=== PATIENT | male | born 1935 | race Caucasian/White ===

== ENCOUNTER 2023-05-30 20:50 | Inpatient (IN) | payer MEDICARE ==
[~2023-05-30] VITALS: Ht 167.6 cm; Wt 79.4 kg
[2023-05-30 23:12] LABS: CALCIUM, SERUM 9.2 mg/dL (8.5-10.1); CARBON DIOXIDE 30 mmol/L (21-32); CHLORIDE 103 mmol/L (98-107); CREATININE 1.5 mg/dL (0.6-1.3); GLUCOSE 92 mg/dL (74-106); POTASSIUM 4.3 mmol/L (3.5-5.1); SODIUM SERUM 141 mmol/L (136-145); UREA NITROGEN, BLOOD 33 mg/dL (7-18)
[2023-05-30 23:25] LABS: NT-PRO BNP 5946 pg/mL (0-125)
[2023-05-31] MEDS ORDERED: BUMETANIDE INJ 0.25 MG/ML VIAL ONE (01:14)
[2023-05-31 01:18] LABS: BASOPHILS % (AUTO) 1.1 % (0.0-2.0); EOSINOPHILS % (AUTO) 1.6 % (0.0-6.0); HEMATOCRIT 33 % (39-51); HEMOGLOBIN 10.9 g/dL (13.5-17.5); LYMPHOCYTES # (AUTO) 0.6 K/uL (0.8-4.8); LYMPHOCYTES % (AUTO) 20.9 % (20.0-44.0); MEAN CORPUSCULAR HEMOGLOBIN 34 PG (26.0-33.0); MEAN CORPUSCULAR HGB CONC 33 g/dl (31.0-36.0); MEAN CORPUSCULAR VOLUME 101 fL (80-96); MONOCYTES # (AUTO) 0.3 K/uL (0.1-1.30); MONOCYTES % (AUTO) 11.9 % (2.0-12.0); NEUTROPHILS # (AUTO) 1.9 K/uL (1.8-8.9); NEUTROPHILS % (AUTO) 64.5 % (43.0-81.0); PLATELET COUNT (AUTO) 56 K/uL (150-450); RED BLOOD CELL COUNT(AUTO) 3.22 MIL/uL (4.5-6.0); RED CELL DISTRIBUTION WIDTH 15.6 % (11.5-15.0); WHITE BLOOD COUNT (AUTO) 2.9 K/uL (4.3-11.0)
[2023-05-31] MEDS: BUMETANIDE INJ 0.25 MG/ML VIAL IV ONE (01:20)
[2023-05-31 01:38] VITALS: O2SAT 100
[2023-05-31] MEDS ORDERED: ASPIRIN 81 MG TAB.CHEW ONE (01:42)
[2023-05-31] MEDS: ASPIRIN 81 MG TAB.CHEW PO ONE (01:44)
[2023-05-31] MEDS ORDERED: MORPHINE SULFATE INJ 2 MG/ML DISP.SYRIN IV PRN (02:00)
[2023-05-31] MEDS ORDERED: DEXTROSE 50%-WATER 50 ML DISP.SYRIN IV PRN (02:00)
[2023-05-31] MEDS ORDERED: hydrALAZINE HCL IV 20 MG VIAL IV PRN (02:00)
[2023-05-31] MEDS ORDERED: ONDANSETRON HCL/PF 4 MG/2 ML VIAL IVP PRN (02:00)
[2023-05-31 02:50] VITALS: BP 158/55; TEMP 97.5; O2SAT 97
[2023-05-31 03:01] LABS: EOSINOPHILS % (MANUAL) 5 % (0-4); LYMPHOCYTES % (MANUAL) 20 % (16-48); MONOCYTES % (MANUAL) 12 % (0-11.0); NEUTROPHILS % (MANUAL) 63 (42-76); PLATELET ESTIMATE DECREASED
[2023-05-31 03:02] LABS: ANISOCYTOSIS 2+
[2023-05-31 04:00] VITALS: BP 131/53; TEMP 97.7; O2SAT 97
[2023-05-31] MEDS: BLOOD SUGAR DIAGNOSTIC 1 EACH STRIP VI SCH (06:36)
[2023-05-31] MEDS: BUMETANIDE INJ 0.25 MG/ML VIAL IV SCH (08:51)
[2023-05-31] MEDS: APIXABAN 2.5 MG TABLET PO SCH (08:52)
[2023-05-31] MEDS ORDERED: CHOL500052 PO (09:02)
[2023-05-31] MEDS ORDERED: PANT40TA2 PO (09:02)
[2023-05-31] MEDS ORDERED: TAMS-12 PO (09:02)
[2023-05-31] MEDS ORDERED: NAPR-1009 PO (09:02)
[2023-05-31] MEDS ORDERED: FURO-144 PO (09:02)
[2023-05-31] MEDS ORDERED: DOCU250C14 PO (09:02)
[2023-05-31] MEDS ORDERED: BUME2TAB7 PO (09:02)
[2023-05-31] MEDS ORDERED: PANT40TA49 PO (09:03)
[2023-05-31] MEDS ORDERED: DOCUSATE SODIUM 250 MG CAPSULE PO PRN (10:30)
[2023-05-31 12:10] LABS: BASOPHILS % (AUTO) 1.1 % (0.0-2.0); EOSINOPHILS # (AUTO) 0.1 K/uL (0.0-0.7); EOSINOPHILS % (AUTO) 2.1 % (0.0-6.0); HEMATOCRIT 31 % (39-51); HEMOGLOBIN 10.6 g/dL (13.5-17.5); LYMPHOCYTES # (AUTO) 0.5 K/uL (0.8-4.8); LYMPHOCYTES % (AUTO) 19.6 % (20.0-44.0); MEAN CORPUSCULAR HEMOGLOBIN 34 PG (26.0-33.0); MEAN CORPUSCULAR HGB CONC 34 g/dl (31.0-36.0); MEAN CORPUSCULAR VOLUME 101 fL (80-96); MONOCYTES # (AUTO) 0.3 K/uL (0.1-1.30); MONOCYTES % (AUTO) 12.5 % (2.0-12.0); NEUTROPHILS # (AUTO) 1.8 K/uL (1.8-8.9); NEUTROPHILS % (AUTO) 64.7 % (43.0-81.0); PLATELET COUNT (AUTO) 55 K/uL (150-450); RED CELL DISTRIBUTION WIDTH 15.7 % (11.5-15.0); WHITE BLOOD COUNT (AUTO) 2.7 K/uL (4.3-11.0)
[2023-05-31 12:13] LABS: APPEARANCE,URINE CLEAR (CLEAR); BILIRUBIN,URINE NEGATIVE (NEGATIVE); BLOOD, URINE TRACE-INTA Ery/uL (NEGATIVE); COLOR,URINE YELLOW (YELLOW); KETONES,URINE NEGATIVE (NEGATIVE); LEUKOCYTE ESTERASE ,URINE NEGATIVE (NEGATIVE); NITRITE, URINE NEGATIVE (NEGATIVE); PH,URINE 6.5 (5.0-8.0); PROTEIN,URINE NEGATIVE (NEGATIVE); UGLUCOSE NEGATIVE (NEGATIVE); UROBILINOGEN,URINE 0.2 EU/dL (0.2)
[2023-05-31 12:17] LABS: CREATININE, URINE 29.2 MG/DL (30.0-125.0); URINE TOTAL PROTEIN 9.2 mg/dL (0-11.9)
[2023-05-31 12:23] LABS: ALANINE AMINOTRANSFERASE 23 U/L (12-78); ALBUMIN 3.7 g/dL (3.4-5.0); ALKALINE PHOSPHATASE 53 U/L (46-116); ASPARTATE AMINOTRANSFERASE 24 U/L (15-37); BILIRUBIN,TOTAL 0.8 mg/dL (0.2-1.0); CALCIUM, SERUM 9.1 mg/dL (8.5-10.1); CARBON DIOXIDE 33 mmol/L (21-32); CHLORIDE 103 mmol/L (98-107); CREATININE 1.5 mg/dL (0.6-1.3); GLUCOSE 94 mg/dL (74-106); MAGNESIUM 2.4 mg/dL (1.8-2.4); PHOSPHORUS 3.9 mg/dL (2.5-4.9); POTASSIUM 4.2 mmol/L (3.5-5.1); SODIUM SERUM 142 mmol/L (136-145); UREA NITROGEN, BLOOD 33 mg/dL (7-18)
[2023-05-31 12:25] LABS: ADD URINE CULTURE NO; BACTERIA,URINE None seen /HPF (None Seen); RBC,URINE 0-2 /HPF (0-2); SQUAMOUS EPITHELIAL CELL,UR None Seen /HPF (None Seen); WBC,URINE NONE SEEN /HPF (0-3)
[2023-05-31 12:38] LABS: EOSINOPHIL,URINE None Seen
[2023-05-31 16:00] VITALS: BP 123/58; TEMP 98.2; O2SAT 93
[2023-05-31 20:00] VITALS: BP 111/51; TEMP 99.3; O2SAT 96
[2023-05-31] MEDS: *INSULIN REGULAR(HUMULIN R)HUM 100 UNIT/ML VIAL SQ PRN (21:17)
[2023-06-01] VITALS: BP 119/52; TEMP 98.1; O2SAT 97
[2023-06-01 05:00] VITALS: BP 111/68; TEMP 97.9; O2SAT 95
[2023-06-01] MEDS: INSULIN REGULAR, HUMAN 100 UNIT/ML 3 ML VIAL SQ PRN (06:30)
[2023-06-01 06:48] LABS: BASOPHILS % (AUTO) 0.6 % (0.0-2.0); EOSINOPHILS # (AUTO) 0.1 K/uL (0.0-0.7); EOSINOPHILS % (AUTO) 4.1 % (0.0-6.0); HEMATOCRIT 29 % (39-51); LYMPHOCYTES # (AUTO) 0.5 K/uL (0.8-4.8); LYMPHOCYTES % (AUTO) 19.6 % (20.0-44.0); MEAN CORPUSCULAR HEMOGLOBIN 34 PG (26.0-33.0); MEAN CORPUSCULAR HGB CONC 34 g/dl (31.0-36.0); MEAN CORPUSCULAR VOLUME 100 fL (80-96); MONOCYTES # (AUTO) 0.4 K/uL (0.1-1.30); MONOCYTES % (AUTO) 15.4 % (2.0-12.0); NEUTROPHILS # (AUTO) 1.6 K/uL (1.8-8.9); NEUTROPHILS % (AUTO) 60.3 % (43.0-81.0); PLATELET COUNT (AUTO) 57 K/uL (150-450); RED BLOOD CELL COUNT(AUTO) 2.92 MIL/uL (4.5-6.0); RED CELL DISTRIBUTION WIDTH 15.2 % (11.5-15.0); WHITE BLOOD COUNT (AUTO) 2.7 K/uL (4.3-11.0)
[2023-06-01 06:49] LABS: IRON, SERUM 72 ug/dl (50-175); TOTAL IRON BINDING CAPACITY 238 ug/dl (250-450)
[2023-06-01 07:00] VITALS: BP 114/53; TEMP 97.6; O2SAT 95
[2023-06-01 07:16] LABS: ALANINE AMINOTRANSFERASE 22 U/L (12-78); ALBUMIN 3.4 g/dL (3.4-5.0); ALKALINE PHOSPHATASE 46 U/L (46-116); ASPARTATE AMINOTRANSFERASE 22 U/L (15-37); BILIRUBIN,TOTAL 0.8 mg/dL (0.2-1.0); CALCIUM, SERUM 8.9 mg/dL (8.5-10.1); CARBON DIOXIDE 31 mmol/L (21-32); CHLORIDE 104 mmol/L (98-107); CREATININE 1.5 mg/dL (0.6-1.3); GLUCOSE 91 mg/dL (74-106); MAGNESIUM 2.4 mg/dL (1.8-2.4); POTASSIUM 3.8 mmol/L (3.5-5.1); SODIUM SERUM 142 mmol/L (136-145); TOTAL PROTEIN, SERUM 6.7 g/dL (6.4-8.2); UREA NITROGEN, BLOOD 32 mg/dL (7-18)
[2023-06-01 07:48] LABS: CREATINE KINASE, TOTAL 113 U/L (39-308); FERRITIN 128 ng/mL (8-388)
[2023-06-01] MEDS: PANTOPRAZOLE 40 MG TABLET.DR PO SCH (07:51)
[2023-06-01] MEDS: TAMSULOSIN 0.4 MG CAP.SR.24H PO SCH (09:11)
[2023-06-01 12:00] VITALS: BP 129/56; TEMP 97.7; O2SAT 94
[2023-06-01 12:28] LABS: ANISOCYTOSIS 1+; BASOPHILS % (MANUAL) 0 % (0.0-2.0); EOSINOPHILS % (MANUAL) 6 % (0-4); LYMPHOCYTES % (MANUAL) 14 % (16-48); MONOCYTES % (MANUAL) 15 % (0-11.0); NEUTROPHILS % (MANUAL) 65 (42-76); PLATELET ESTIMATE DECREASED
[2023-06-01] MEDS: ACETAMINOPHEN 325 MG TABLET PO PRN (15:41)
[2023-06-01 16:10] VITALS: BP 125/59; TEMP 97.7; O2SAT 94
[2023-06-01 20:00] VITALS: BP 123/67; TEMP 97.9; O2SAT 94
[2023-06-02] VITALS: BP 122/56; TEMP 97.7; O2SAT 98
[2023-06-02 05:00] VITALS: BP 133/48; TEMP 98.6; O2SAT 96
[2023-06-02 06:36] LABS: CALCIUM, SERUM 9.1 mg/dL (8.5-10.1); CARBON DIOXIDE 31 mmol/L (21-32); CHLORIDE 102 mmol/L (98-107); CREATININE 1.6 mg/dL (0.6-1.3); GLUCOSE 92 mg/dL (74-106); POTASSIUM 3.7 mmol/L (3.5-5.1); SODIUM SERUM 139 mmol/L (136-145); UREA NITROGEN, BLOOD 36 mg/dL (7-18)
[2023-06-02 07:00] VITALS: BP 116/60; TEMP 98.1; O2SAT 94
[2023-06-02 08:10] LABS: PTH, INTACT 73 pg/mL (15-65)
[2023-06-02] MEDS ORDERED: MUPI22OI7 TP (10:53)
[2023-06-02 11:10] LABS: *SPE A/G RATIO 1.1 (0.7-1.7); *SPE ALBUMIN 3.4 g/dL (2.9-4.4); *SPE ALPHA-1-GLOBULIN 0.2 g/dL (0.0-0.4); *SPE ALPHA-2-GLOBULIN 0.5 g/dL (0.4-1.0); *SPE BETA GLOBULIN 0.8 g/dL (0.7-1.3); *SPE GLOBULIN, TOTAL 3.1 g/dL (2.2-3.9); *SPE M-SPIKE Not Observed g/dL (Not Observed); *SPE PROTEIN TOTAL 6.5 g/dL (6.0-8.5); *SPEGAMMA GLOBULIN 1.6 g/dL (0.4-1.8)
[2023-06-03] MEDS ORDERED: MUPIROCIN OINT 2% 22 GM TUBE TP SCH (09:00)
== END 2023-06-02 16:00 | disposition home or self-care (01) | DRG 291 ==
LOC: ER 20:54 → TELE 05-31 01:44
PROVIDERS: ADMIT Internal Medicine; ATTEND Internal Medicine
PROC: 0HBKXZZ Excision of Right Lower Leg Skin, External Approach (ICD-10-PCS; principal; 2023-06-02)
DX: I13.0 Hypertensive heart and chronic kidney disease with heart failure and stage 1 through stage 4 chronic kidney disease, or unspecified chronic kidney disease (principal); I50.23 Acute on chronic systolic (congestive) heart failure; N17.0 Acute kidney failure with tubular necrosis; D61.818 Other pancytopenia; I48.20 Chronic atrial fibrillation, unspecified; L03.115 Cellulitis of right lower limb; I87.311 Chronic venous hypertension (idiopathic) with ulcer of right lower extremity; L97.819 Non-pressure chronic ulcer of other part of right lower leg with unspecified severity; S80.821A Blister (nonthermal), right lower leg, initial encounter; X58.XXXA Exposure to other specified factors, initial encounter; Y92.9 Unspecified place or not applicable; K74.60 Unspecified cirrhosis of liver; N18.9 Chronic kidney disease, unspecified; I27.20 Pulmonary hypertension, unspecified; I34.0 Nonrheumatic mitral (valve) insufficiency; I42.9 Cardiomyopathy, unspecified; N40.0 Benign prostatic hyperplasia without lower urinary tract symptoms; K21.9 Gastro-esophageal reflux disease without esophagitis; I87.2 Venous insufficiency (chronic) (peripheral); Z91.199 Patient's noncompliance with other medical treatment and regimen due to unspecified reason
CPT/HCPCS: 36415; 71045-TC; 80048-TC; 80053-TC; 81001; 82550-TC; 82570-TC; 82607-TC; 82728-TC; 82962-TC; 83540-TC; 83735-TC; 83880; 83970; 84100-TC; 84155; 84165; 84300-TC; 84484-TC; 85025-TC; 93307-TC; 97110-TC; 97116-TC; A6253; A6403; G0378; J1815; J3490

== ENCOUNTER 2024-04-04 18:09 | Inpatient (IN) | payer MEDICARE, OTHER ==
[~2024-04-04] VITALS: Ht 177.8 cm; Wt 69.9 kg
[~2024-04-04 18:09] MED LIST: BUME2TAB7 PO; CHOL500052 PO; DOCU250C14 PO; MUPI22OI7 TP; NAPR-1009 PO; PANT40TA49 PO; TAMS-12 PO
[2024-04-04 19:52] LABS: BASOPHILS % (AUTO) 0.8 % (0.0-2.0); EOSINOPHILS # (AUTO) 0.1 K/uL (0.0-0.7); EOSINOPHILS % (AUTO) 2.8 % (0.0-6.0); HEMATOCRIT 32 % (39-51); HEMOGLOBIN 11.1 g/dL (13.5-17.5); LYMPHOCYTES # (AUTO) 0.7 K/uL (0.8-4.8); LYMPHOCYTES % (AUTO) 23.8 % (20.0-44.0); MEAN CORPUSCULAR HEMOGLOBIN 36 PG (26.0-33.0); MEAN CORPUSCULAR HGB CONC 35 g/dl (31.0-36.0); MEAN CORPUSCULAR VOLUME 104 fL (80-96); MONOCYTES # (AUTO) 0.4 K/uL (0.1-1.30); MONOCYTES % (AUTO) 13.6 % (2.0-12.0); NEUTROPHILS # (AUTO) 1.7 K/uL (1.8-8.9); PLATELET COUNT (AUTO) 57 K/uL (150-450); RED BLOOD CELL COUNT(AUTO) 3.07 MIL/uL (4.5-6.0); RED CELL DISTRIBUTION WIDTH 15.8 % (11.5-15.0); WHITE BLOOD COUNT (AUTO) 2.9 K/uL (4.3-11.0)
[2024-04-04 20:00] LABS: CALCIUM, SERUM 8.9 mg/dL (8.5-10.1); CARBON DIOXIDE 33 mmol/L (21-32); CHLORIDE 106 mmol/L (98-107); CREATININE 1.6 mg/dL (0.6-1.3); GLUCOSE 102 mg/dL (74-106); POTASSIUM 4.3 mmol/L (3.5-5.1); SODIUM SERUM 142 mmol/L (136-145); UREA NITROGEN, BLOOD 31 mg/dL (7-18)
[2024-04-04 20:13] LABS: NT-PRO BNP 6394 pg/mL (0-125)
[2024-04-04] MEDS ORDERED: FUROSEMIDE 40 MG/4 ML VIAL ONE (20:17)
[2024-04-04] MEDS: FUROSEMIDE 40 MG/4 ML VIAL IV ONE (20:17)
[2024-04-04 20:49] LABS: LYMPHOCYTES % (MANUAL) 33 % (16-48); MONOCYTES % (MANUAL) 11 % (0-11.0); NEUTROPHILS % (MANUAL) 56 (42-76)
[2024-04-04 20:50] LABS: ANISOCYTOSIS 1+; OVALOCYTES 1+; PLATELET ESTIMATE DECREASED
[2024-04-04] MEDS ORDERED: ACETAMINOPHEN 325 MG TABLET PO PRN (21:00)
[2024-04-04] MEDS ORDERED: ONDANSETRON HCL/PF 4 MG/2 ML VIAL IVP PRN (21:00)
[2024-04-04] MEDS ORDERED: Z GUARD REMEDY 4 OZ OINT TP PRN (21:00)
[2024-04-04] MEDS ORDERED: MAG HYDROX/AL HYDROX/SIMETH 30 ML UDC PO PRN (21:00)
[2024-04-04] MEDS ORDERED: MAGNESIUM HYDROXIDE 30 ML UDC PO PRN (21:00)
[2024-04-05 07:06] LABS: BASOPHILS % (AUTO) 0.9 % (0.0-2.0); EOSINOPHILS # (AUTO) 0.1 K/uL (0.0-0.7); EOSINOPHILS % (AUTO) 3.9 % (0.0-6.0); HEMATOCRIT 30 % (39-51); HEMOGLOBIN 10.5 g/dL (13.5-17.5); LYMPHOCYTES # (AUTO) 0.6 K/uL (0.8-4.8); LYMPHOCYTES % (AUTO) 26.2 % (20.0-44.0); MEAN CORPUSCULAR HEMOGLOBIN 36 PG (26.0-33.0); MEAN CORPUSCULAR HGB CONC 35 g/dl (31.0-36.0); MEAN CORPUSCULAR VOLUME 103 fL (80-96); MONOCYTES # (AUTO) 0.3 K/uL (0.1-1.30); MONOCYTES % (AUTO) 14.7 % (2.0-12.0); NEUTROPHILS # (AUTO) 1.3 K/uL (1.8-8.9); NEUTROPHILS % (AUTO) 54.3 % (43.0-81.0); PLATELET COUNT (AUTO) 54 K/uL (150-450); RED CELL DISTRIBUTION WIDTH 15.5 % (11.5-15.0); WHITE BLOOD COUNT (AUTO) 2.4 K/uL (4.3-11.0)
[2024-04-05] MEDS ORDERED: PANTOPRAZOLE 40 MG TABLET.DR PO ONE (07:44)
[2024-04-05] MEDS: PANTOPRAZOLE 40 MG TABLET.DR PO SCH (07:48)
[2024-04-05 07:56] LABS: CALCIUM, SERUM 8.8 mg/dL (8.5-10.1); CREATININE 1.5 mg/dL (0.6-1.3); MAGNESIUM 2.2 mg/dL (1.8-2.4); PHOSPHORUS 3.8 mg/dL (2.5-4.9); POTASSIUM 3.9 mmol/L (3.5-5.1)
[2024-04-05] MEDS ORDERED: BUMETANIDE INJ 0.25 MG/ML VIAL ONE (08:53)
[2024-04-05] MEDS: BUMETANIDE INJ 0.25 MG/ML VIAL IV SCH (09:09)
[2024-04-05] MEDS: DOCUSATE SODIUM 250 MG CAPSULE PO PRN (09:10)
[2024-04-05] MEDS ORDERED: TAMSULOSIN 0.4 MG CAP.SR.24H ONE (09:16)
[2024-04-05] MEDS: TAMSULOSIN 0.4 MG CAP.SR.24H PO SCH (09:33)
[2024-04-05 10:45] LABS: EOSINOPHILS % (MANUAL) 5 % (0-4); LYMPHOCYTES % (MANUAL) 22 % (16-48); MONOCYTES % (MANUAL) 10 % (0-11.0)
[2024-04-05 10:46] LABS: ANISOCYTOSIS 1+; NEUTROPHILS % (MANUAL) 63 (42-76); PLATELET ESTIMATE DECREASED
[2024-04-05 10:47] LABS: OVALOCYTES 1+
[2024-04-05 20:00] VITALS: BP 137/64; TEMP 99; O2SAT 98
[2024-04-05 20:30] VITALS: BP 137/64; TEMP 99; O2SAT 98
[2024-04-06] VITALS: BP 125/56; TEMP 98.8; O2SAT 98
[2024-04-06 04:00] VITALS: BP 118/55; TEMP 98.6; O2SAT 96
[2024-04-06 07:40] LABS: BASOPHILS % (AUTO) 0.8 % (0.0-2.0); EOSINOPHILS # (AUTO) 0.1 K/uL (0.0-0.7); EOSINOPHILS % (AUTO) 3.6 % (0.0-6.0); HEMATOCRIT 33 % (39-51); HEMOGLOBIN 11.2 g/dL (13.5-17.5); LYMPHOCYTES # (AUTO) 0.7 K/uL (0.8-4.8); LYMPHOCYTES % (AUTO) 26.4 % (20.0-44.0); MEAN CORPUSCULAR HEMOGLOBIN 36 PG (26.0-33.0); MEAN CORPUSCULAR HGB CONC 34 g/dl (31.0-36.0); MEAN CORPUSCULAR VOLUME 104 fL (80-96); MONOCYTES # (AUTO) 0.4 K/uL (0.1-1.30); MONOCYTES % (AUTO) 13.1 % (2.0-12.0); NEUTROPHILS # (AUTO) 1.5 K/uL (1.8-8.9); NEUTROPHILS % (AUTO) 56.1 % (43.0-81.0); PLATELET COUNT (AUTO) 58 K/uL (150-450); RED BLOOD CELL COUNT(AUTO) 3.13 MIL/uL (4.5-6.0); RED CELL DISTRIBUTION WIDTH 15.5 % (11.5-15.0); WHITE BLOOD COUNT (AUTO) 2.7 K/uL (4.3-11.0)
[2024-04-06 07:42] LABS: MAGNESIUM 2.2 mg/dL (1.8-2.4); PHOSPHORUS 4.1 mg/dL (2.5-4.9)
[2024-04-06 07:45] LABS: CALCIUM, SERUM 8.7 mg/dL (8.5-10.1); CREATININE 1.5 mg/dL (0.6-1.3)
[2024-04-06 08:00] VITALS: BP 119/58; TEMP 98.2; O2SAT 96
[2024-04-06 10:24] LABS: LYMPHOCYTES % (MANUAL) 25 % (16-48); MONOCYTES % (MANUAL) 13 % (0-11.0); NEUTROPHILS % (MANUAL) 59 (42-76)
[2024-04-06 10:25] LABS: ANISOCYTOSIS 1+; EOSINOPHILS % (MANUAL) 4 % (0-4); OVALOCYTES 1+; PLATELET ESTIMATE DECREASED
[2024-04-06 16:05] VITALS: BP 125/54; TEMP 98.2; O2SAT 98
[2024-04-06] MEDS: BUMETANIDE INJ 0.25 MG/ML VIAL IV SCH (16:46)
[2024-04-06 20:00] VITALS: BP 117/48; TEMP 98.1; O2SAT 95; O2SAT 98
[2024-04-06] MEDS: HEPARIN SODIUM, PORCINE 5000 UNITS/1 ML VIAL SQ SCH (20:51)
[2024-04-07] VITALS: BP_SYST 129; BP_SYST 135; BP_DIAS 64; BP_DIAS 81; TEMP 98; O2SAT 96
[2024-04-07 05:29] VITALS: BP 129/62; TEMP 98.2; O2SAT 96
[2024-04-07 07:00] VITALS: BP 140/49; TEMP 97.5; O2SAT 95
[2024-04-07 07:03] LABS: BASOPHILS % (AUTO) 0.7 % (0.0-2.0); EOSINOPHILS # (AUTO) 0.1 K/uL (0.0-0.7); EOSINOPHILS % (AUTO) 3.6 % (0.0-6.0); HEMATOCRIT 31 % (39-51); HEMOGLOBIN 10.6 g/dL (13.5-17.5); LYMPHOCYTES # (AUTO) 0.7 K/uL (0.8-4.8); LYMPHOCYTES % (AUTO) 26.1 % (20.0-44.0); MEAN CORPUSCULAR HEMOGLOBIN 36 PG (26.0-33.0); MEAN CORPUSCULAR HGB CONC 35 g/dl (31.0-36.0); MEAN CORPUSCULAR VOLUME 102 fL (80-96); MONOCYTES # (AUTO) 0.3 K/uL (0.1-1.30); MONOCYTES % (AUTO) 12.7 % (2.0-12.0); NEUTROPHILS # (AUTO) 1.4 K/uL (1.8-8.9); NEUTROPHILS % (AUTO) 56.9 % (43.0-81.0); PLATELET COUNT (AUTO) 51 K/uL (150-450); RED BLOOD CELL COUNT(AUTO) 2.98 MIL/uL (4.5-6.0); WHITE BLOOD COUNT (AUTO) 2.5 K/uL (4.3-11.0)
[2024-04-07 07:04] LABS: CALCIUM, SERUM 8.7 mg/dL (8.5-10.1); CREATININE 1.3 mg/dL (0.6-1.3)
[2024-04-07 07:21] LABS: MAGNESIUM 2.2 mg/dL (1.8-2.4); PHOSPHORUS 3.6 mg/dL (2.5-4.9)
[2024-04-07 07:53] LABS: THYROID STIMULATING HORMONE 3.72 uIU/mL (0.358-3.74)
[2024-04-07] MEDS ORDERED: MECO10005 PO (11:25)
[2024-04-07] MEDS: CYANOCOBALAMIN 1,000 MCG/ML VIAL IM ONE (12:24)
[2024-04-07 14:01] LABS: ANISOCYTOSIS 1+; BASOPHILS % (MANUAL) 0 % (0.0-2.0); EOSINOPHILS % (MANUAL) 1 % (0-4); LYMPHOCYTES % (MANUAL) 24 % (16-48); MONOCYTES % (MANUAL) 14 % (0-11.0); NEUTROPHILS % (MANUAL) 61 (42-76); PLATELET ESTIMATE DECREASED
[2024-04-08] MEDS ORDERED: ERGOCALCIFEROL (VITAMIN D 2) 50,000 UNIT CAPSULE PO SCH (09:00)
== END 2024-04-07 16:30 | disposition home health service (06) | DRG 291 ==
LOC: ER 18:36 → TRANSITION 04-05 11:05 → TELE 04-05 18:47 → MED 04-07 12:30
PROVIDERS: ATTEND Nurse Practitioner Family
PROC: 0H9LXZZ Drainage of Left Lower Leg Skin, External Approach (ICD-10-PCS; principal; 2024-04-05)
DX: I13.0 Hypertensive heart and chronic kidney disease with heart failure and stage 1 through stage 4 chronic kidney disease, or unspecified chronic kidney disease (principal); I50.33 Acute on chronic diastolic (congestive) heart failure; I48.20 Chronic atrial fibrillation, unspecified; N17.9 Acute kidney failure, unspecified; D61.818 Other pancytopenia; D50.9 Iron deficiency anemia, unspecified; I27.20 Pulmonary hypertension, unspecified; Z79.01 Long term (current) use of anticoagulants; N18.9 Chronic kidney disease, unspecified; I42.9 Cardiomyopathy, unspecified; E53.8 Deficiency of other specified B group vitamins; I34.0 Nonrheumatic mitral (valve) insufficiency; S80.822A Blister (nonthermal), left lower leg, initial encounter; X58.XXXA Exposure to other specified factors, initial encounter; Y93.9 Activity, unspecified; Y92.009 Unspecified place in unspecified non-institutional (private) residence as the place of occurrence of the external cause; I87.2 Venous insufficiency (chronic) (peripheral); N40.0 Benign prostatic hyperplasia without lower urinary tract symptoms; K74.60 Unspecified cirrhosis of liver
CPT/HCPCS: 36415; 71045-TC; 73030-TC; 80048-TC; 82607-TC; 82728-TC; 83540-TC; 83735-TC; 83880; 84100-TC; 84439-TC; 84443-TC; 84484-TC; 85025-TC; 87081-TC; 93307-TC; 97116-TC; 97530-TC; A6253; G0378; J1644; J1940; J3420; J3490

== ENCOUNTER 2024-11-18 22:01 | Inpatient (IN) | payer MEDICARE, OTHER ==
[~2024-11-18] VITALS: Ht 190.5 cm; Wt 84.5 kg
[~2024-11-18 22:01] MED LIST changes: +MECO10005 PO
[2024-11-18] MEDS ORDERED: FUROSEMIDE 40 MG/4 ML VIAL ONE (23:03)
[2024-11-18 23:18] LABS: PLATELET COUNT (AUTO) 61 K/uL (150-450); RED BLOOD CELL COUNT(AUTO) 2.96 MIL/uL (4.5-6.0); RED CELL DISTRIBUTION WIDTH 16.2 % (11.5-15.0); WHITE BLOOD COUNT (AUTO) 2.4 K/uL (4.3-11.0)
[2024-11-18 23:20] LABS: ABG BASE EXCESS -0.7 mmol/L (-2.0-3.0); ABG OXYGEN SATURATION 85.4 % (94.0-98.0); ABG PCO2 42.2 mmHg (35.0-48.0); ABG PH 7.381 (7.350-7.450); ABG PO2 53.3 mmHg (83.0-108.0); ABG TOTAL HEMOGLOBIN 10.7 G/dL (13.5-17.5); FLOW, BLOOD GAS 0.00 L/min (0.00-30.00); FRACTIONATED INSPIRED OXYGEN 21.0 %; SITE, ABG LEFT BRACHIAL
[2024-11-18 23:32] LABS: CALCIUM, SERUM 8.6 mg/dL (8.5-10.1); CREATININE 1.3 mg/dL (0.6-1.3); SODIUM SERUM 141 mmol/L (136-145); UREA NITROGEN, BLOOD 29 mg/dL (7-18)
[2024-11-18] MEDS: FUROSEMIDE 40 MG/4 ML VIAL IV ONE (23:33)
[2024-11-18 23:42] LABS: LACTIC ACID 1.1 mmol/L (0.4-2.0)
[2024-11-18 23:43] LABS: ASPARTATE AMINOTRANSFERASE 23 U/L (15-37); NT-PRO BNP 9528 pg/mL (0-125); TOTAL PROTEIN, SERUM 7.5 g/dL (6.4-8.2)
[2024-11-19] VITALS (7 sets, daily range): BP systolic 112–118; BP diastolic 50–57; TEMP 97.4–98.4; O2SAT 92–99
[2024-11-19 00:02] LABS: EOSINOPHILS % (MANUAL) 2 % (0-4); LYMPHOCYTES % (MANUAL) 21 % (16-48); MONOCYTES % (MANUAL) 6 % (0-11.0); NEUTROPHILS % (MANUAL) 71 (42-76)
[2024-11-19 00:03] LABS: PLATELET ESTIMATE DECREASED
[2024-11-19] MEDS ORDERED: ALBUTEROL FS 2.5 MG/3 ML VIAL.NEB ONE (00:10)
[2024-11-19] MEDS: ALBUTEROL FS 2.5 MG/3 ML VIAL.NEB NEB ONE (00:16)
[2024-11-19 01:11] LABS: APPEARANCE,URINE CLEAR (CLEAR); BLOOD, URINE NEGATIVE Ery/uL (NEGATIVE); LEUKOCYTE ESTERASE ,URINE NEGATIVE (NEGATIVE); NITRITE, URINE NEGATIVE (NEGATIVE); UGLUCOSE 2+ mg/dL (NEGATIVE)
[2024-11-19 01:29] LABS: ADD URINE CULTURE NO; SQUAMOUS EPITHELIAL CELL,UR Rare /HPF (None Seen)
[2024-11-19] MEDS ORDERED: MAG HYDROX/AL HYDROX/SIMETH 30 ML UDC PO PRN (02:00)
[2024-11-19] MEDS ORDERED: ONDANSETRON HCL/PF 4 MG/2 ML VIAL IVP PRN (02:00)
[2024-11-19] MEDS ORDERED: Z GUARD REMEDY 4 OZ OINT TP PRN (02:00)
[2024-11-19] MEDS ORDERED: ZOLPIDEM TARTRATE 5 MG TABLET PO PRN (02:00)
[2024-11-19 07:28] LABS: PLATELET COUNT (AUTO) 57 K/uL (150-450); RED BLOOD CELL COUNT(AUTO) 2.82 MIL/uL (4.5-6.0); RED CELL DISTRIBUTION WIDTH 16.3 % (11.5-15.0); WHITE BLOOD COUNT (AUTO) 2.1 K/uL (4.3-11.0)
[2024-11-19 07:53] LABS: CALCIUM, SERUM 8.6 mg/dL (8.5-10.1); CREATININE 1.2 mg/dL (0.6-1.3); PHOSPHORUS 3.7 mg/dL (2.5-4.9); SODIUM SERUM 140.0 mmol/L (136-145); UREA NITROGEN, BLOOD 28.0 mg/dL (7-18)
[2024-11-19] MEDS ORDERED: DOCUSATE SODIUM 250 MG CAPSULE PO PRN (08:30)
[2024-11-19] MEDS: PANTOPRAZOLE 40 MG VIAL IV SCH (08:36)
[2024-11-19] MEDS: CHOLECALCIFEROL 1,000 UNIT TABLET (VIT D3) PO SCH (08:36)
[2024-11-19] MEDS: FUROSEMIDE 40 MG/4 ML VIAL IV SCH (08:37)
[2024-11-19] MEDS: PANTOPRAZOLE 40 MG TABLET.DR PO SCH (08:37)
[2024-11-19] MEDS: ASPIRIN 81 MG TAB.CHEW PO SCH (08:37)
[2024-11-19] MEDS: TAMSULOSIN 0.4 MG CAP.SR.24H PO SCH (08:37)
[2024-11-19 08:45] LABS: EOSINOPHILS % (MANUAL) 3 % (0-4); LYMPHOCYTES % (MANUAL) 26 % (16-48); MONOCYTES % (MANUAL) 9 % (0-11.0); NEUTROPHILS % (MANUAL) 62 (42-76); PLATELET ESTIMATE DECREASED
[2024-11-19 19:10] LABS: CREATININE, URINE < 13.0 MG/DL (30.0-125.0); URINE SODIUM, RANDOM 127 mmol/l (40-220); URINE TOTAL PROTEIN 6.6 mg/dL (0-11.9)
[2024-11-19] MEDS: MAGNESIUM HYDROXIDE 30 ML UDC PO PRN (21:06)
[2024-11-19] MEDS: ACETAMINOPHEN 325 MG TABLET PO PRN (22:11)
[2024-11-20] VITALS: BP 109/54; TEMP 97.5; O2SAT 94
[2024-11-20 04:00] VITALS: BP 109/46; TEMP 97.7; O2SAT 96
[2024-11-20 07:28] LABS: WHITE BLOOD COUNT (AUTO) 2.9 K/uL (4.3-11.0)
[2024-11-20 07:29] LABS: RED BLOOD CELL COUNT(AUTO) 3.17 MIL/uL (4.5-6.0)
[2024-11-20 07:30] LABS: PLATELET COUNT (AUTO) 67 K/uL (150-450)
[2024-11-20 08:00] VITALS: BP 116/52; TEMP 97.3; O2SAT 94
[2024-11-20] MEDS: CYANOCOBALAMIN 500 MCG TABLET PO SCH (08:29)
[2024-11-20] MEDS: BUMETANIDE INJ 0.25 MG/ML VIAL IV SCH (08:29)
[2024-11-20 08:42] LABS: SODIUM SERUM 142 mmol/L (136-145)
[2024-11-20 08:43] LABS: CALCIUM, SERUM 9.0 mg/dL (8.5-10.1); CREATININE 1.5 mg/dL (0.6-1.3); PHOSPHORUS 3.8 mg/dL (2.5-4.9); UREA NITROGEN, BLOOD 32 mg/dL (7-18)
[2024-11-20 10:29] LABS: LDL 96 mg/dL (0-99)
[2024-11-20 10:48] LABS: EOSINOPHILS % (MANUAL) 1 % (0-4); LYMPHOCYTES % (MANUAL) 17 % (16-48); MONOCYTES % (MANUAL) 10 % (0-11.0); NEUTROPHILS % (MANUAL) 72 (42-76); PLATELET ESTIMATE DECREASED
[2024-11-20] MEDS: LEVOFLOXACIN (250MG) 250 MG TABLET PO SCH (14:27)
[2024-11-20 16:00] VITALS: BP 113/55; TEMP 97.9; O2SAT 94
[2024-11-20 20:00] VITALS: BP 137/70; TEMP 97.6; O2SAT 96
[2024-11-21] VITALS: BP 109/50; TEMP 97.5; O2SAT 96
[2024-11-21 04:00] VITALS: BP 130/66; TEMP 97.3; O2SAT 96
[2024-11-21 07:30] VITALS: BP 113/54; TEMP 98.2; O2SAT 100
[2024-11-21 07:49] LABS: PLATELET COUNT (AUTO) 59 K/uL (150-450); RED BLOOD CELL COUNT(AUTO) 2.94 MIL/uL (4.5-6.0); RED CELL DISTRIBUTION WIDTH 16.2 % (11.5-15.0); WHITE BLOOD COUNT (AUTO) 2.4 K/uL (4.3-11.0)
[2024-11-21 08:21] LABS: ASPARTATE AMINOTRANSFERASE 20.0 U/L (15-37); CALCIUM, SERUM 8.3 mg/dL (8.5-10.1); CREATININE 1.4 mg/dL (0.6-1.3); PHOSPHORUS 3.6 mg/dL (2.5-4.9); SODIUM SERUM 139.0 mmol/L (136-145); TOTAL PROTEIN, SERUM 6.6 g/dL (6.4-8.2); UREA NITROGEN, BLOOD 32.0 mg/dL (7-18)
[2024-11-21 08:36] LABS: LYMPHOCYTES % (MANUAL) 21 % (16-48); NEUTROPHILS % (MANUAL) 64 (42-76)
[2024-11-21 08:37] LABS: EOSINOPHILS % (MANUAL) 5 % (0-4); MONOCYTES % (MANUAL) 10 % (0-11.0); PLATELET ESTIMATE DECREASED
[2024-11-21 16:00] VITALS: BP 104/49; TEMP 97.7; O2SAT 93
[2024-11-21] MEDS: APIXABAN 5 MG TABLET PO SCH (17:08)
[2024-11-21 20:00] VITALS: BP 113/53; TEMP 97.7; O2SAT 94
[2024-11-22] VITALS: BP 112/57; TEMP 98.4; O2SAT 98
[2024-11-22 05:00] VITALS: BP 101/48; TEMP 97.7; O2SAT 93
[2024-11-22 06:45] LABS: PLATELET COUNT (AUTO) 57 K/uL (150-450); RED BLOOD CELL COUNT(AUTO) 2.91 MIL/uL (4.5-6.0); RED CELL DISTRIBUTION WIDTH 15.8 % (11.5-15.0); WHITE BLOOD COUNT (AUTO) 2.4 K/uL (4.3-11.0)
[2024-11-22 07:04] LABS: CALCIUM, SERUM 8.9 mg/dL (8.5-10.1); CREATININE 1.4 mg/dL (0.6-1.3); PHOSPHORUS 3.7 mg/dL (2.5-4.9); SODIUM SERUM 141.0 mmol/L (136-145); UREA NITROGEN, BLOOD 37.0 mg/dL (7-18)
[2024-11-22 07:30] VITALS: BP 122/58; TEMP 98.2; O2SAT 99
[2024-11-22 08:12] LABS: EOSINOPHILS % (MANUAL) 3 % (0-4); LYMPHOCYTES % (MANUAL) 20 % (16-48); MONOCYTES % (MANUAL) 13 % (0-11.0); NEUTROPHILS % (MANUAL) 64 (42-76); PLATELET ESTIMATE DECREASED
[2024-11-22] MEDS ORDERED: ASPI-1169 PO (10:34)
[2024-11-22] MEDS ORDERED: APIX5TAB PO (10:34)
[2024-11-22] MEDS ORDERED: LEVO250T59 PO (10:34)
[2024-11-22] MEDS ORDERED: EMPA10TA PO (10:49)
[2024-11-22 16:00] VITALS: BP 105/51; TEMP 97.2; O2SAT 98
[2024-11-22 20:00] VITALS: BP 111/49; TEMP 98.6; O2SAT 100
== END 2024-11-22 21:20 | disposition home health service (06) | DRG 291 ==
LOC: ER 22:03 → TELE 11-19 01:20
PROVIDERS: ADMIT Nurse Practitioner Acute Care; ATTEND Nurse Practitioner Acute Care
DX: I13.0 Hypertensive heart and chronic kidney disease with heart failure and stage 1 through stage 4 chronic kidney disease, or unspecified chronic kidney disease (principal); I50.33 Acute on chronic diastolic (congestive) heart failure; J96.01 Acute respiratory failure with hypoxia; J15.9 Unspecified bacterial pneumonia; D61.818 Other pancytopenia; I48.20 Chronic atrial fibrillation, unspecified; N17.9 Acute kidney failure, unspecified; J90 Pleural effusion, not elsewhere classified; R18.8 Other ascites; I82.412 Acute embolism and thrombosis of left femoral vein; I31.39 Other pericardial effusion (noninflammatory); J98.11 Atelectasis; N18.32 Chronic kidney disease, stage 3b; Z79.01 Long term (current) use of anticoagulants; K74.60 Unspecified cirrhosis of liver; N40.0 Benign prostatic hyperplasia without lower urinary tract symptoms; I27.20 Pulmonary hypertension, unspecified; I42.9 Cardiomyopathy, unspecified; E11.22 Type 2 diabetes mellitus with diabetic chronic kidney disease; D69.2 Other nonthrombocytopenic purpura; E53.8 Deficiency of other specified B group vitamins; I08.3 Combined rheumatic disorders of mitral, aortic and tricuspid valves; S80.821A Blister (nonthermal), right lower leg, initial encounter; X58.XXXA Exposure to other specified factors, initial encounter; Y93.9 Activity, unspecified; Y92.009 Unspecified place in unspecified non-institutional (private) residence as the place of occurrence of the external cause; I87.8 Other specified disorders of veins; R79.89 Other specified abnormal findings of blood chemistry; R16.1 Splenomegaly, not elsewhere classified
CPT/HCPCS: 36415; 36600; 71045-TC; 71250-TC; 80048-TC; 80053-TC; 80061-TC; 81001; 82570-TC; 82607-TC; 82803-TC; 83605-TC; 83735-TC; 83880; 84100-TC; 84300-TC; 84484-TC; 85027-TC; 87040-TC; 93307-TC; 93970-TC; 94799-TC; G0378; J1938; J2470; J3490